=== PATIENT | male | born 1960 | race Hispanic/Latino ===

== ENCOUNTER 2018-11-27 12:14 | Outpatient (CLI) | payer OTHER ==
--- NOTE | 2018-11-27 13:28 | RAD ---
SINGLE VIEW OF THE SINUSES: Comparison: None. History: MRI safety. Possible metallic slivers in the eyes. FINDINGS: Single water's view of the skull for MRI safety shows no evidence of radiopaque foreign body. Visuali zed paranasal sinuses are well aerated. IMPRESSION: No metallic foreign body identified. POS: [facility]
--- NOTE | 2018-11-27 15:27 | MRI ---
LUMBAR SPINE MRI WITHOUT CONTRAST: Date: 11/27/18 COMPARISON: 12/15/16. HISTORY: Lumbar radiculopathy, back pain with left lower extremity radiculopathy, including burning and numbne ss. TECHNIQUE: Multiplanar, multisequence MR imaging of the lumbar spine obtained without contrast. FINDINGS: There is no significant anterolisthesis or retrolisthesis noted within the lumbar spine. On the basis of five lumbar-type vertebral bodies, the conus medullaris terminates at the L1-2 level. T12-L1: Mild bilateral facet hypertrophy. There is disc desiccation with no significant central fidelina l or neural foraminal stenosis. L1-2: Mild bilateral facet hypertrophy, left greater than right. There is disc space narrowing, disc desiccation, and mild disc bulge with no significant central canal or neural foraminal stenosis. L2-3: There is disc space narrowing and disc desiccation with mild disc bulge. There is a foraminal disc protrusion on the left. Mild bilateral facet hypertrophy noted. No significant central canal chip nosis. Minimal left neural foraminal stenosis. No right neural foraminal stenosis. L3-4: Disc space narrowing, disc desiccation, and degenerative end plate change. Bilateral facet hyp ertrophy, right greater than left. There is a small foraminal disc protrusion on the right. There is moderate right neural foraminal chip nosis. No significant central canal or left neural foraminal stenosis. L4-5: Disc space narrowing and disc desiccation with mild disc bulge. No significant central canal s tenosis. Bilateral facet hypertrophy and hypertrophy of the ligamentum flavum, right greater than lef t. Moderate right neural foraminal stenosis. No significant left neural foraminal stenosis. L5-S1: There is disc space narrowing and disc desiccation. Bilateral facet hypertrophy, left greater than right. No significant central canal stenosis. Moderate left and mild right neural foraminal chip nosis. When compared to the 12/15/16 exam, there has been no significant interval change. The imaged retrope ritoneal structures demonstrate no acute findings. IMPRESSION: Multilevel lumbar spine degenerative change as described above. POS: [facility]
== END 2018-11-27 12:15 | disposition home or self-care (01) ==
LOC: BICMRI 12:14
PROVIDERS: ATTEND Nurse Practitioner Family
DX: M47.26 Other spondylosis with radiculopathy, lumbar region (principal); M54.17 Radiculopathy, lumbosacral region; M54.32 Sciatica, left side; M54.5 Low back pain
CPT/HCPCS: 70210; 72148

== ENCOUNTER 2019-03-12 15:56 | Outpatient (CLI) | payer OTHER ==
[~2019-03-12 15:56] MED LIST: Gadobenate Dimeglumine 529 MG/1 ML (20ML VIAL) ONE
[2019-03-12 16:46] LABS: Estimated GFR-MDRD - POC Greater than 90
--- NOTE | 2019-03-12 17:42 | MRI ---
Pre and postcontrast enhanced MRI images thoracic spine. HISTORY: Left-sided numbness for 5 to 7 years. Multiplanar multisequence pre and postcontrast enhanced MRI images thoracic spine obtained. The vertebral bodies are unremarkable. The discs are unremarkable. There is a central annular fissure seen at the T11-12 level with a mild broad-based disc bulge. The neural foramen are patent. No evidence of spinal cord abnormality seen. IMPRESSION: T11-12 annular fissure.
== END 2019-03-12 15:57 | disposition home or self-care (01) ==
LOC: SCSMRI 15:56
PROVIDERS: ATTEND Specialist
DX: M54.14 Radiculopathy, thoracic region (principal); G95.0 Syringomyelia and syringobulbia
CPT/HCPCS: 72157; 82565; A9577